=== PATIENT | female | born 1985 | race Caucasian/White ===

== ENCOUNTER → 2018-08-18 | Outpatient (REF) | LOC: M LAB LCGH 12:44 | PROVIDERS: ATTEND Surgery | DX: K35.80 Unspecified acute appendicitis (principal) ==

== ENCOUNTER 2025-02-16 13:42 | Inpatient (IN) | payer OTHER ==
[~2025-02-16] VITALS: Ht 162.6 cm; Wt 81.4 kg
[2025-02-16 14:39] LABS: PLATELET COUNT, AUTOMATED 435 10^3/uL (150-450)
[2025-02-16 15:00] LABS: ETHYL ALCOHOL (ETHANOL) < 0.003 % (0.000-0.010)
[2025-02-16 15:01] LABS: ALT/SGPT 24 U/L (7.0-40); AST/SGOT 24 U/L (<34); CALCIUM LEVEL 9.4 MG/DL (8.5-10.1); CARBON DIOXIDE LEVEL 22 MMOL/L (20-31); CHLORIDE LEVEL 103 MMOL/L (98-107); CREATININE FOR GFR 0.71 MG/DL (0.55-1.30); GLOMERULAR FILTRATION RATE > 90.0 (>60); POTASSIUM SERUM 4.1 MMOL/L (3.5-5.1); SALICYLATE LEVEL < 3.0 MG/DL (<30); SODIUM LEVEL 137 MMOL/L (136-145)
[2025-02-16] MEDS ORDERED: VYVA50CA4 PO (15:23)
[2025-02-16] MEDS ORDERED: HOME MED LIST COMPLETE! XX SCH (15:25)
[2025-02-16 17:18] LABS: AMPHETAMINES LEVEL URINE NEGATIVE (NEGATIVE); BARBITURATES URINE NEGATIVE (NEGATIVE); BENZODIAZEPINES URINE NEGATIVE (NEGATIVE); COCAINE METABOLITE URINE NEGATIVE (NEGATIVE)
[2025-02-16 17:19] LABS: METHADONE URINE NEGATIVE (NEGATIVE); OPIATES URINE NEGATIVE (NEGATIVE); PHENCYCLIDINE URINE NEGATIVE (NEGATIVE)
[2025-02-16 17:24] LABS: CANNABINOIDS URINE POSITIVE (NEGATIVE)
[2025-02-16] MEDS ORDERED: MAALOX 30 ML SUSP *UDC PO PRN (18:30)
[2025-02-16] MEDS ORDERED: MOM 30 ML SUSPENSION UDC PO PRN (18:30)
[2025-02-16] MEDS ORDERED: ACETAMINOPHEN 325 MG TAB PO PRN (18:30)
[2025-02-16 21:14] VITALS: BP 128/69; TEMP 97.3; O2SAT 100
[2025-02-16] MEDS: traZODone 50 MG TAB PO PRN (21:35)
[2025-02-17] MEDS: QUEtiapine FUMARATE 50MG TAB PO ONE (00:48)
[2025-02-17 06:40] VITALS: BP 108/59; TEMP 98; O2SAT 98
[2025-02-17] MEDS: IBUPROFEN 400 MG TAB PO PRN (13:10)
[2025-02-17] MEDS: NICOTINE 14 MG/24 HR TRANSDERMAL TD SCH (15:24)
[2025-02-17 16:08] VITALS: BP 147/81; TEMP 98.1; O2SAT 98
[2025-02-17] MEDS: DIVALPROEX 500 MG *ER* TAB PO SCH (16:11)
[2025-02-17 20:46] VITALS: BP 147/81; TEMP 98.1; O2SAT 98
[2025-02-18 06:45] VITALS: BP 134/74; TEMP 97; O2SAT 98
[2025-02-18 16:20] VITALS: BP 128/62; TEMP 98.1; O2SAT 97
[2025-02-18] MEDS: DIVALPROEX 500 MG *ER* TAB PO SCH (20:11)
[2025-02-19 04:56] VITALS: BP 154/90
[2025-02-19 06:28] VITALS: BP 132/70; TEMP 97.3; O2SAT 97
[2025-02-19 14:45] VITALS: BP 124/56; TEMP 98.2; O2SAT 99
[2025-02-20 06:20] VITALS: BP 133/77; TEMP 97.8; O2SAT 99
[2025-02-20 15:52] VITALS: BP 148/73; TEMP 97.8; O2SAT 98
[2025-02-21 06:44] VITALS: BP 136/64; TEMP 98.1; O2SAT 98
[2025-02-21 16:18] VITALS: BP 111/58; TEMP 97.4; O2SAT 98
[2025-02-22 06:38] VITALS: BP 137/63; TEMP 97.7; O2SAT 100
[2025-02-22] MEDS ORDERED: ABIL10TA9 PO (08:17)
[2025-02-22] MEDS ORDERED: QUET100T2 PO (08:17)
[2025-02-22] MEDS ORDERED: HYDR-3363 PO (08:17)
== END 2025-02-22 10:17 | disposition home or self-care (01) | DRG 753 ==
LOC: M ED 13:42 → M ED INP 18:26 → M PSY 21:15
PROVIDERS: ADMIT Student in an Organized Health Care Education/Training Program; ATTEND Student in an Organized Health Care Education/Training Program
DX: F31.2 Bipolar disorder, current episode manic severe with psychotic features (principal); F41.1 Generalized anxiety disorder; F41.0 Panic disorder [episodic paroxysmal anxiety]; F12.10 Cannabis abuse, uncomplicated; F10.10 Alcohol abuse, uncomplicated; Z91.199 Patient's noncompliance with other medical treatment and regimen due to unspecified reason; G47.00 Insomnia, unspecified; F50.819 Binge eating disorder, unspecified; D72.829 Elevated white blood cell count, unspecified; Z88.0 Allergy status to penicillin; Z88.8 Allergy status to other drugs, medicaments and biological substances; Z91.040 Latex allergy status; Z79.899 Other long term (current) drug therapy